=== PATIENT | female | born 1945 | race Caucasian/White ===

== ENCOUNTER 2022-04-03 16:32 | Observation (INO) | payer MEDICARE ==
[~2022-04-03] VITALS: Ht 160 cm; Wt 68.9 kg
[2022-04-03] MEDS ORDERED: ACETAMINOPHEN 325 MG TAB PO PRN (19:00)
[2022-04-03] MEDS ORDERED: GUAIFENESIN-DM 200/20 MG 10 ML PO PRN (19:00)
[2022-04-03] MEDS ORDERED: ZOLPIDEM TARTRATE 5 MG TAB PO PRN (19:00)
[2022-04-03] MEDS ORDERED: ONDANSETRON 4MG INJ IVP PRN (19:00)
[2022-04-03 19:10] LABS: BASOPHILS % (AUTO) 0.3 % (0.0-5.0); HEMATOCRIT 40.9 % (36-48); LYMPHOCYTES % (AUTO) 12.8 % (21.0-51.0); MEAN CORPUSCULAR HEMOGLOBIN 32.9 pg (27.0-33.0); MEAN CORPUSCULAR HGB CONC 33.3 g/dL (32.0-36.0); MONOCYTES % (AUTO) 4.6 % (3.0-13.0); NEUTROPHILS % (AUTO) 81.8 % (40.0-77.0); PLATELET COUNT (AUTO) 239 K/uL (130-400); RED BLOOD CELL COUNT(AUTO) 4.13 MIL/uL (4.00-5.50); RED CELL DISTRIBUTION WIDTH 13.6 % (11.0-15.5); WHITE BLOOD COUNT (AUTO) 11.5 K/uL (4.8-10.8)
[2022-04-03 19:19] LABS: CREATININE 0.9 mg/dL (0.5-1.5); POTASSIUM 4.2 mmol/L (3.5-5.1)
[2022-04-03 19:24] LABS: ALBUMIN 3.1 g/dL (3.5-5.0); BILIRUBIN,DIRECT 0.1 mg/dL (0.0-0.3); TOTAL PROTEIN, SERUM 7.1 g/dL (6.0-8.3)
[2022-04-03] MEDS: CEFTAZIDIME PENTAHYDRATE 1 GM/VIAL IVP SCH (19:25)
[2022-04-03] MEDS: OSELTAMIVIR PHOSPHATE 75 MG CAP PO SCH (22:34)
[2022-04-03] MEDS: SOLU-MEDROL 125MG VIAL IVP SCH (22:34)
[2022-04-03] MEDS: ACETYLCYSTEINE 20% 200MG/ML 4ML VIAL PO SCH (23:25)
[2022-04-03] MEDS: DEXTROSE 5 %-0.45 % NACL 1,000 ML IV SCH (23:34)
[2022-04-03] MEDS ORDERED: CHOL125C6 PO (23:50)
[2022-04-03] MEDS ORDERED: LISI20TA24 PO (23:50)
[2022-04-03] MEDS ORDERED: DULO60CA64 PO (23:50)
[2022-04-03] MEDS ORDERED: TIMO5DRO35 OP (23:50)
[2022-04-03] MEDS ORDERED: LEVO25TA54 PO (23:50)
[2022-04-03] MEDS ORDERED: LATA7.5D OP (23:50)
[2022-04-04] VITALS (7 sets, daily range): BP systolic 131–153; BP diastolic 58–72
[2022-04-04] MEDS ORDERED: ALBUTEROL 0.083% 2.5 MG/3 ML INH IH ONE ×5 (00:27→23:07)
[2022-04-04] MEDS ORDERED: IPRATROPIUM 0.5 MG/2.5 ML INH IH ONE ×5 (00:27→23:07)
[2022-04-04] MEDS: ACETYLCYSTEINE 20% 200MG/ML 4ML VIAL PO SCH (01:00)
[2022-04-04] MEDS: CEFTAZIDIME PENTAHYDRATE 1 GM/VIAL IVP SCH ×3 (03:36→18:39)
[2022-04-04] MEDS: IPRATROPIUM/ALBUTEROL SULFATE 3 ML SOLUTION IH SCH ×3 (06:00→18:00)
[2022-04-04] MEDS ORDERED: PHARMACY COMMUNICATION MISC SCH ×2 (07:00→11:30)
[2022-04-04] MEDS: SOLU-MEDROL 125MG VIAL IVP SCH ×2 (08:56→20:05)
[2022-04-04] MEDS: OSELTAMIVIR PHOSPHATE 75 MG CAP PO SCH ×2 (08:56→20:05)
[2022-04-04] MEDS: ACETYLCYSTEINE 20% 200MG/ML 4ML VIAL IH SCH ×3 (11:00→23:35)
[2022-04-04] MEDS: DEXTROSE 5 %-0.45 % NACL 1,000 ML IV SCH ×2 (16:14→20:08)
[2022-04-05] MEDS: SOLU-MEDROL 125MG VIAL IVP SCH (00:43)
[2022-04-05] MEDS: CEFTAZIDIME PENTAHYDRATE 1 GM/VIAL IVP SCH ×2 (03:46→12:58)
[2022-04-05 03:59] VITALS: BP 124/66
[2022-04-05] MEDS: IPRATROPIUM/ALBUTEROL SULFATE 3 ML SOLUTION IH SCH ×3 (06:00→11:09)
[2022-04-05 06:10] LABS: HEMATOCRIT 37.2 % (36-48); MEAN CORPUSCULAR HEMOGLOBIN 32.3 pg (27.0-33.0); MEAN CORPUSCULAR HGB CONC 32.8 g/dL (32.0-36.0); MEAN CORPUSCULAR VOLUME 98.4 fL (79-99); RED BLOOD CELL COUNT(AUTO) 3.78 MIL/uL (4.00-5.50); RED CELL DISTRIBUTION WIDTH 13.4 % (11.0-15.5); WHITE BLOOD COUNT (AUTO) 18.6 K/uL (4.8-10.8)
[2022-04-05] MEDS ORDERED: IPRATROPIUM 0.5 MG/2.5 ML INH IH ONE ×2 (06:22→10:51)
[2022-04-05 06:36] LABS: CREATININE 0.7 mg/dL (0.5-1.5); POTASSIUM 4.8 mmol/L (3.5-5.1); TOTAL PROTEIN, SERUM 6.1 g/dL (6.0-8.3)
[2022-04-05 06:37] LABS: ALBUMIN 2.4 g/dL (3.5-5.0)
[2022-04-05] MEDS ORDERED: ALBUTEROL 0.083% 2.5 MG/3 ML INH IH ONE ×2 (07:08→10:50)
[2022-04-05] MEDS: ACETYLCYSTEINE 20% 200MG/ML 4ML VIAL IH SCH ×2 (07:10→11:09)
[2022-04-05 07:15] VITALS: BP 165/63
[2022-04-05] MEDS: OSELTAMIVIR PHOSPHATE 75 MG CAP PO SCH (09:33)
[2022-04-05] MEDS: DEXTROSE 5 %-0.45 % NACL 1,000 ML IV SCH (09:38)
[2022-04-05 11:10] VITALS: BP 140/59
== END 2022-04-05 14:20 | disposition home or self-care (01) ==
LOC: EDH 16:32 → INTOOBSV 16:33 → DIRECT 16:33 → 3DH 21:37
PROVIDERS: ADMIT Internal Medicine; ATTEND Internal Medicine
DX: J44.1 Chronic obstructive pulmonary disease with (acute) exacerbation (principal); Z20.822 Contact with and (suspected) exposure to COVID-19; R11.2 Nausea with vomiting, unspecified; J10.1 Influenza due to other identified influenza virus with other respiratory manifestations; Z88.0 Allergy status to penicillin; Z86.16 Personal history of COVID-19; Z79.899 Other long term (current) drug therapy
CPT/HCPCS: 96374; 96361 ×3; 96375; 99285; 80076; 80048; 85025; 87804 ×2; 36415 ×2; 87635; 71045; 71250; 96376 ×2; 94640 ×7; 94664; 80053; 85027; J2930 ×3; J0713 ×6; J7608 ×5; G0378 ×20; J7042

== ENCOUNTER → 2024-05-21 | Outpatient (CLI) | payer MEDICARE ==
[~2024-05-21] VITALS: Ht 160 cm; Wt 72.4 kg
[~2024-05-21] MED LIST: ACET-2079 PO; CHOL125C6 PO; DULO60CA64 PO; INSU3INS3 SQ; LATA7.5D OU; LEVO25TA54 PO; LEVO50TA11 PO; LIDO70.9 TP; LISI20TA24 PO; PRIM50TA23 PO; TIMO5DRO47 OU
[2024-05-21 10:41] LABS: BASOPHILS # (AUTO) 0.05 K/uL (0.00-0.20); BASOPHILS % (AUTO) 0.5 % (0.0-5.0); EOSINOPHILS # (AUTO) 0.15 K/uL (0.00-0.70); EOSINOPHILS % (AUTO) 1.6 % (0.0-8.0); HEMATOCRIT 41.2 % (36-48); IMMATURE GRANULOCYTE ABSOLUTE 0.03 K/uL (0-1); LYMPHOCYTES # (AUTO) 3.5 K/uL (1.0-4.8); MEAN CORPUSCULAR HEMOGLOBIN 32.6 pg (27.0-33.0); MEAN CORPUSCULAR VOLUME 98.8 fL (79-99); MONOCYTES # (AUTO) 0.6 K/uL (0.1-1.0); MONOCYTES % (AUTO) 6.7 % (3.0-13.0); NEUTROPHILS # (AUTO) 5.1 K/uL (1.8-7.7); NEUTROPHILS % (AUTO) 53.9 % (40.0-77.0); PLATELET COUNT (AUTO) 272 K/uL (130-400); RED BLOOD CELL COUNT(AUTO) 4.17 MIL/uL (4.00-5.50); WHITE BLOOD COUNT (AUTO) 9.4 K/uL (4.8-10.8)
[2024-05-21 10:50] LABS: POTASSIUM 5.4 mmol/L (3.5-5.1)
[2024-05-21 10:59] VITALS: BP 135/62; PULSE 57; RESP 19; TEMP 97.1
[2024-05-21 11:03] LABS: INR 0.98 (0.85-1.15); PROTHROMBIN TIME 10.4 SEC (9.6-11.6)
[2024-05-21 11:04] LABS: PARTIAL THROMBOPLASTIN TIME 26.8 SEC (26.3-35.5)
--- NOTE | 2024-05-21 17:55 | NUR ---
RE: LABS REPORTED BMP RESULTS TO DR CASANOVA, RECEIVED ORDERS TO RECHECK POTASSIUM ON DOS.
== END | disposition home or self-care (01) ==
LOC: DAH 09:45 → EDSTATUS 05-23 10:20
PROVIDERS: ATTEND Student in an Organized Health Care Education/Training Program
DX: S83.241A Other tear of medial meniscus, current injury, right knee, initial encounter (principal); M25.561 Pain in right knee; R26.89 Other abnormalities of gait and mobility; R06.02 Shortness of breath; M94.261 Chondromalacia, right knee; X58.XXXA Exposure to other specified factors, initial encounter; Y93.89 Activity, other specified; Y92.89 Other specified places as the place of occurrence of the external cause; Y99.8 Other external cause status
CPT/HCPCS: 36415; 80048; 85025; 85610; 85730

== ENCOUNTER 2024-06-06 05:49 | Day surgery (SDC) | payer MEDICARE ==
[2024-06-04 10:26] LABS: BASOPHILS # (AUTO) 0.05 K/uL (0.00-0.20); BASOPHILS % (AUTO) 0.6 % (0.0-5.0); EOSINOPHILS # (AUTO) 0.16 K/uL (0.00-0.70); EOSINOPHILS % (AUTO) 1.8 % (0.0-8.0); HEMATOCRIT 39.7 % (36-48); IMMATURE GRANULOCYTE ABSOLUTE 0.05 K/uL (0-1); LYMPHOCYTES # (AUTO) 3.7 K/uL (1.0-4.8); LYMPHOCYTES % (AUTO) 41.9 % (21.0-51.0); MEAN CORPUSCULAR HEMOGLOBIN 32.6 pg (27.0-33.0); MEAN CORPUSCULAR HGB CONC 32.7 g/dL (32.0-36.0); MEAN CORPUSCULAR VOLUME 99.5 fL (79-99); MONOCYTES # (AUTO) 0.6 K/uL (0.1-1.0); MONOCYTES % (AUTO) 6.9 % (3.0-13.0); NEUTROPHILS # (AUTO) 4.3 K/uL (1.8-7.7); NEUTROPHILS % (AUTO) 48.2 % (40.0-77.0); PLATELET COUNT (AUTO) 284 K/uL (130-400); RED BLOOD CELL COUNT(AUTO) 3.99 MIL/uL (4.00-5.50); WHITE BLOOD COUNT (AUTO) 8.8 K/uL (4.8-10.8)
[2024-06-04 10:39] LABS: INR 0.97 (0.85-1.15); PROTHROMBIN TIME 10.3 SEC (9.6-11.6)
[2024-06-04 10:41] LABS: PARTIAL THROMBOPLASTIN TIME 26.3 SEC (26.3-35.5)
[2024-06-04 10:45] VITALS: BP 120/58; PULSE 66; RESP 14; TEMP 97.2
--- NOTE | 2024-06-04 13:51 | EKG ---
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
[2024-06-06] VITALS (14 sets, daily range): BP systolic 106–141; BP diastolic 45–63; PULSE 68–74; RESP 14–18; TEMP 96.6–97.9
[~2024-06-06] VITALS: Ht 160 cm; Wt 73.2 kg
[~2024-06-06 05:49] MED LIST changes: -ACET-2079 PO; -INSU3INS3 SQ; -LEVO25TA54 PO; -PRIM50TA23 PO
[2024-06-06] MEDS ORDERED: proPOFol 10 MG/ML 20ML VIAL IV ONE (06:40)
[2024-06-06] MEDS ORDERED: rocuRONium bROMide 10MG/1ML 5ML VL ONE (06:40)
[2024-06-06] MEDS ORDERED: ondanSETRON 4MG INJ ONE (06:40)
[2024-06-06] MEDS ORDERED: dexaMETHasone SOD PHOSPHATE 10MG/ML 1ML VIAL ONE (06:40)
[2024-06-06] MEDS ORDERED: LIDOCAINE PF 100MG/5ML (2%) SYRINGE 5ML ONE (06:40)
[2024-06-06] MEDS ORDERED: NEOSTIGMINE METHYLSULFATE 1MG/ML IV ONE (06:40)
[2024-06-06] MEDS ORDERED: GLYCOPYRROLATE 0.2 MG/ML 5 ML VIAL ONE (06:40)
[2024-06-06] MEDS ORDERED: SUCCINYLCHOLINE CHLORIDE 20 MG/ML 10 ML VIAL ONE (06:40)
[2024-06-06] MEDS ORDERED: MIDAZOLAM HCL 1 MG/ML 2ML VIAL ONE (06:41)
[2024-06-06] MEDS ORDERED: FENTanyl CITRate PF 50 MCG/1 ML 2ML VIAL ONE ×2 (06:41→08:55)
[2024-06-06] MEDS ORDERED: BUPIvacaine/PF 0.25% 30ML VIAL IJ ONE (06:48)
[2024-06-06] MEDS: LACTATED RINGERS 1000ML 1,000 ML IV ONE (06:53)
[2024-06-06] MEDS: ceFAZolin SODIUM 2 GM VIAL ONE (06:54)
[2024-06-06] MEDS ORDERED: ketaMINE 50MG/ML SYRINGE 50 MG/ML DISP.SYRIN ONE (06:59)
[2024-06-06] MEDS: CLINDAMYCIN IVPB 900MG/50ML 0 ML IV ONE (07:26)
[2024-06-06] MEDS: acetaMINOPHEN 325 MG TAB ONE (07:28)
[2024-06-06] MEDS: VANCOMYCIN 1G VIAL IVPB ONE ×2 (08:10)
[2024-06-06] MEDS: VANCOMYCIN 1G/250ML KIT 250 ML IV ONE (08:14)
[2024-06-06] MEDS ORDERED: ACET-2079 PO (08:15)
--- NOTE | 2024-06-06 09:46 | OP ---
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 Lateral gutter with no loose bodies. Lateral compartment with degenerative tearing of both anterior and posterior horn of the lateral meniscus and some grade 2-3 chondromalacia on the femoral condyle. Grade 1-2 on the lateral tibial plateau. Notch with the ACL intact. Medial compartment with grade 2-3 chondromalacia on the weight- bearing surface of the femur, grade 1-2 on the tibial plateau, significant complex tearing in the posterior horn of the medial meniscus with medial meniscus root intact. Medial gutter with no loose bodies. Appropriate tracking of the patellofemoral articulation. PROCEDURE: Right knee arthroscopy with partial medial and lateral meniscectomy ESTIMATED BLOOD LOSS: 5 cc INDICATIONS: 78-year-old female with right knee pain and minimal arthritic changes on x-ray. MRI was obtained that showed a complex tear of the posterior horn of the medial meniscus. We discussed the risks, benefits, and alternatives to undergoing right knee arthroscopic meniscal debridement with the understanding that she also had underlying arthritic changes of her cartilage in the this may not relieve all of her pain. Patient is still desired to proceed with the aforementioned procedure. DESCRIPTION OF PROCEDURE: Patient was properly identified in the preoperative holding area. Surgical site marking was verified and surgery consent reviewed. The patient was then taken to the operating room and placed in supine position on the OR table. After induction of general anesthesia, preoperative antibiotics were given, all bony prominences were well-padded, and a well padded tourniquet was applied but not inflated at this time. The [left lower] extremity was then prepped and draped in usual sterile fashion. Surgical timeout was done verifying correct surgery, side, site, and location to be performed. We then began the procedure by making a standard anterolateral portal with an 11 blade and inserted our arthroscope through here. We made our anterior medial portal under direct visualization using spinal needle for localization. There was some excessive fat pad tissue obscuring visualization so we inserted the shaver device to debride this. We then inserted the electrocautery device to stop any bleeding that was generated by resection of some of the fat pad. We then inserted our probe and performed our diagnostic arthroscopy with the above mentioned findings. At this point we inserted a shaver device and performed our meniscal debridement in both the medial and lateral compartments. We then inserted the shaver and further debrided the patellofemoral articulation of some loose cartilage flaps. Once we were happy with our debridement, we then thoroughly irrigated out the wound with normal saline. We removed as much fluid from the knee as possible. We then injected local anesthetic within the capsule of the joint as well as around the portal sites. Our portal sites were then repaired using 3-0 nylon in simple fashion. Sterile dressing was then applied consisting of Xeroform, 4 x 4's, ABD, cast padding, and an Gigi wrap. The patient was then awakened from anesthesia and taken to recovery room in stable condition. SHU DONALDSON MD Jun 06, 2024 09:46
--- NOTE | 2024-06-06 11:20 | NUR ---
Patient awakens to voice and follows simple commands with prompting. Appears excessively sleepy. Daughter and stated she "Did not sleep at all overnight". Gilberto Cruz [employer] came to assess Patient and stated to allow up time to "Sleep off the OR meds" VS wnl Sats 93%. Daughter remains at side. Call light in reach.
--- NOTE | 2024-06-06 12:00 | NUR ---
Order received and patient seen. Patient was difficult to arouse. Spouse and daughter were present. Attempted to sit patient at edge of stretcher however patient was unable to sit unsupported, needing daughter and PT support. Patient was still sedated and unable to continue with eval. As per daughter, anesthesiologist recommended not to attempt for one hour. Informed nurse Pt would be back in one hour to re attempt. Upon going to day surgery an hour later, patient has been discharged. Addendum: 06/06/24 at 1726 by JOSE RAUL ALAMO PT Amended: Links added.
--- NOTE | 2024-06-06 12:36 | NUR ---
Patient aox4. Unwillingly to help self transfer. Applied gait belt post PT visit. POV via w/c to home with Daughter and .
== END 2024-06-06 12:30 | disposition home or self-care (01) ==
LOC: DAH 05:49
PROVIDERS: ATTEND Student in an Organized Health Care Education/Training Program
DX: M23.221 Derangement of posterior horn of medial meniscus due to old tear or injury, right knee (principal); M23.241 Derangement of anterior horn of lateral meniscus due to old tear or injury, right knee; M23.251 Derangement of posterior horn of lateral meniscus due to old tear or injury, right knee; M94.261 Chondromalacia, right knee; M25.561 Pain in right knee; R26.89 Other abnormalities of gait and mobility; I10 Essential (primary) hypertension; E03.9 Hypothyroidism, unspecified; Z90.49 Acquired absence of other specified parts of digestive tract; Z82.49 Family history of ischemic heart disease and other diseases of the circulatory system; Z88.0 Allergy status to penicillin; Z88.8 Allergy status to other drugs, medicaments and biological substances; Z79.01 Long term (current) use of anticoagulants; Z79.890 Hormone replacement therapy; Z79.899 Other long term (current) drug therapy
CPT/HCPCS: 85025; 85610; 85730; 36415; 93005; 29880; 97161; 97530; A4663; J7120 ×2; A4649 ×3; J3370 ×2; J3010 ×2; J1100; J0330; J0665 ×2; J3490 ×3; J2003; J2250; J2704; J2405; J2710; A6223; A5120; A4215; A4223; A4213; A4222; A4221; A6450; J0690